=== PATIENT | female | born 2000 | race Caucasian/White ===

== ENCOUNTER → 2023-12-13 07:41 | Outpatient (REF) | payer BC, SELFPAY | LOC: PAVMRI 07:41 | PROVIDERS: ATTENDING PHYSICIAN Specialist; FAMILY PHYSICIAN Family Medicine | DX: K50.813 Crohn's disease of both small and large intestine with fistula (principal) | CPT/HCPCS: 72197; 74183; A9575 ==

== ENCOUNTER 2024-12-12 06:20 | Day surgery (SDC) | payer BC, SELFPAY | END 2024-12-12 10:09 | disposition home or self-care (01) | LOC: GI 06:20 | PROVIDERS: ATTENDING PHYSICIAN Specialist | DX: K50.80 Crohn's disease of both small and large intestine without complications (principal); K63.89 Other specified diseases of intestine | CPT/HCPCS: 45380; 88305 ==